=== PATIENT | male | born 1960 | race Caucasian/White ===

== ENCOUNTER 2023-12-22 11:09 | Outpatient (CLI) | payer BC ==
[2023-12-22 13:22] LABS: #Monocytes 0.4 10x3/uL (0.0-1.1); #Neutrophils 6.5 10x3/uL (1.5-8.4); %Basophils 0.4 % (0.0-2.0); %Eosinophils 0.4 % (0.0-6.0); %Lymphocytes 14.8 % (18.0-47.0); %Neutrophils 79.3 % (40.0-75.0); Hematocrit 41.4 % (38.8-50.0); Hemoglobin 14.1 g/dL (13.5-17.5); Mean Corpuscular HGB CONC 34.1 g/dL (32.0-36.0); Mean Corpuscular Hemoglobin 29.4 pg (27.0-33.0); Mean Corpuscular Volume 86.3 fl (81.2-95.1); Mean Platelet Volume 10.5 fl (7.4-10.4); Platelet Count 293 10x3/uL (150-450); RBC Distribution Width 13.6 % (11.5-14.5); White Blood Cell (WBC) Count 8.2 10x3/uL (3.5-10.5)
[2023-12-22 14:06] LABS: Anion Gap 12 mmol/L (10-20); BUN (Urea Nitrogen) 16 mg/dL (8.4-25.7); Calc. Creatinine Clearance 0 mL/min (70-130); Calcium 9.7 mg/dL (7.8-10.44); Carbon Dioxide 27 mmol/L (23-31); Chloride 100 mmol/L (98-107); Estimated GFR 77; Glucose 86 mg/dL (80-115); Potassium 4.4 mmol/L (3.5-5.1); Sodium 135 mmol/L (136-145)
== END 2023-12-22 11:10 | disposition home or self-care (01) ==
LOC: LABBT 11:09
PROVIDERS: ATTEND Surgery
DX: Z01.818 Encounter for other preprocedural examination (principal); K40.90 Unilateral inguinal hernia, without obstruction or gangrene, not specified as recurrent
CPT/HCPCS: 80048; 85025; 93005; 93010

== ENCOUNTER 2023-12-29 07:15 | Day surgery (SDC) | payer BC ==
[2023-12-22 11:58] VITALS: BMI 28.7
[2023-12-29] MEDS ORDERED: PROPOFOL 20 ML ONE ×3 (08:13→09:41)
[2023-12-29] MEDS ORDERED: Lidocaine 1% PF 5 ML VIAL ONE (08:13)
[2023-12-29] MEDS ORDERED: EPINEPHrine 1 MG/ML VIAL ONE (08:24)
[2023-12-29] MEDS ORDERED: Bupivacaine 0.25% HCL 30 ML VIAL ONE (08:24)
[2023-12-29] MEDS ORDERED: Bupivacaine PF 0.5% 30 ML VIAL ONE (08:30)
[2023-12-29] MEDS ORDERED: fentaNYL PF 100 MCG/2 ML SYRINGE ONE (09:14)
[2023-12-29] MEDS ORDERED: CEFAZOLIN 2 GM VIAL ONE (09:22)
[2023-12-29] MEDS ORDERED: Sodium Chloride 0.9% 100 ML ONE (09:22)
[2023-12-29] MEDS ORDERED: Dexamethasone 4 mg/ml Vial ONE (09:45)
[2023-12-29] MEDS ORDERED: Ondansetron PF 4 MG/2 ML Vial ONE (10:07)
[2023-12-29] MEDS ORDERED: Ketorolac Tromethamine 30 MG (1 mL) VIAL ONE ×2 (10:07→10:09)
[2023-12-29] MEDS ORDERED: fentaNYL 50 mcg/mL 1 mL Vial ONE (10:43)
[2023-12-29] MEDS ORDERED: HYDROcodone/Acetaminophen 5/325 mg Tablet ONE (11:27)
== END 2023-12-29 12:40 | disposition home or self-care (01) ==
LOC: SDC 07:15
PROVIDERS: ATTEND Surgery
PROC: 0YU60JZ Supplement Left Inguinal Region with Synthetic Substitute, Open Approach (ICD-10-PCS; principal; 2023-12-29)
DX: K40.90 Unilateral inguinal hernia, without obstruction or gangrene, not specified as recurrent (principal)
CPT/HCPCS: C1781; J0171; J0665; J1100; J1885; J2405; J2704; J3010; J3490